=== PATIENT | male | born 1990 | race African-American/Black ===

== ENCOUNTER 2017-07-08 09:32 | Emergency (ER) | payer OTHER ==
[~2017-07-08] VITALS: Ht 170.2 cm; Wt 68.0 kg
[2017-07-08 10:46] VITALS: BP 129/88
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
[2017-07-08] MEDS ORDERED: NAPR500T8 PO (12:50)
[2017-07-08] MEDS ORDERED: CYCL10TA2 PO (12:50)
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
== END 2017-07-08 12:54 | disposition home or self-care (01) ==
LOC: ER 09:32
DX: S13.4XXA Sprain of ligaments of cervical spine, initial encounter (principal); S20.211A Contusion of right front wall of thorax, initial encounter; S40.011A Contusion of right shoulder, initial encounter; V49.59XA Passenger injured in collision with other motor vehicles in traffic accident, initial encounter; Y93.89 Activity, other specified; Y99.8 Other external cause status; Y92.488 Other paved roadways as the place of occurrence of the external cause
CPT/HCPCS: 71101; 72040; 73030; 99284